=== PATIENT | female | born 1950 | race African-American/Black ===

== ENCOUNTER 2017-06-29 20:04 | Emergency (ER) | payer OTHER ==
[~2017-06-29] VITALS: Ht 160 cm; Wt 68.0 kg
[~2017-06-29 20:04] MED LIST: DOXY100C42 PO; FOS500 PO; LISI30TA36 PO; P20 PO
[2017-06-29] MEDS ORDERED: OXYCODONE HCL/ACETAMINOPHEN 5/325MG TABLET PO ONE (20:30)
[2017-06-29 21:22] VITALS: BP 152/74
== END 2017-06-30 00:11 | disposition home or self-care (01) ==
LOC: ER 20:50
DX: T82.838A Hemorrhage due to vascular prosthetic devices, implants and grafts, initial encounter (principal); I10 Essential (primary) hypertension; J44.9 Chronic obstructive pulmonary disease, unspecified; Z99.2 Dependence on renal dialysis; Y84.1 Kidney dialysis as the cause of abnormal reaction of the patient, or of later complication, without mention of misadventure at the time of the procedure
CPT/HCPCS: 99283

== ENCOUNTER 2018-02-27 04:29 | Emergency (ER) | payer OTHER, MEDICAID ==
[~2018-02-27] VITALS: Ht 167.6 cm; Wt 50.0 kg
[2018-02-27] MEDS ORDERED: ENALAPRIL 2.5MG/2ML VIAL 2ML IV ONE (04:45)
[2018-02-27] MEDS ORDERED: TRAMADOL 50MG TABLET PO ONE (05:00)
[2018-02-27 05:20] LABS: HEMATOCRIT. 33.4 % (36.0-48.0); HEMOGLOBIN. 10.8 g/dL (12.0-16.0); MEAN CORPUSCULAR HEMOGLOBIN 30.1 pg (28.0-32.0); MEAN PLATELET VOLUME 8.8 fl (7.4-10.4); PLATELET 102 x1000/uL (130-400); RED BLOOD CELL COUNT 3.59 mill/uL (4.2-5.4); RED CELL DISTRIBUTION WIDTH 19.1 % (11.6-14.6)
[2018-02-27 05:29] LABS: PHOSPHORUS 3.3 mg/dL (2.5-4.9)
[2018-02-27 06:02] LABS: INR 1.2; PROTHROMBIN TIME 12.5 sec (9.1-11.1)
[2018-02-27 06:40] LABS: PARTIAL THROMBOPLASTIN TIME > 200.0 sec (23.4-31.0)
[2018-02-27 07:00] VITALS: BP 133/54
[2018-02-27 07:48] LABS: PLATELET ESTIMATE SLIGHTLY DECREASED
== END 2018-02-27 07:14 | disposition short-term general hospital (02) ==
LOC: ER 04:29
DX: I73.9 Peripheral vascular disease, unspecified (principal); I12.0 Hypertensive chronic kidney disease with stage 5 chronic kidney disease or end stage renal disease; N18.6 End stage renal disease; D63.1 Anemia in chronic kidney disease; D72.829 Elevated white blood cell count, unspecified; R94.31 Abnormal electrocardiogram [ECG] [EKG]; J44.9 Chronic obstructive pulmonary disease, unspecified; E78.00 Pure hypercholesterolemia, unspecified; Z99.2 Dependence on renal dialysis
CPT/HCPCS: 36415; 80048; 83735; 84100; 85025; 85610; 85730; 93005; 96374; 99291; J3490

== ENCOUNTER 2018-04-13 04:10 | Inpatient (IN) | payer OTHER ==
[~2018-04-13] VITALS: Ht 160 cm; Wt 55.8 kg
[2018-04-13] MEDS ORDERED: MORPHINE SULFATE 4 MG/ML CPJ (NOT FOR IM USE) IV SCH (05:28)
[2018-04-13 07:51] LABS: HEMATOCRIT. 31.4 % (36.0-48.0); HEMOGLOBIN. 9.9 g/dL (12.0-16.0); MEAN CORPUSCULAR HEMOGLOBIN 31.9 pg (28.0-32.0); MEAN CORPUSCULAR VOLUME 100.9 fL (81.0-99.0); MEAN PLATELET VOLUME 9.7 fl (7.4-10.4); PLATELET 73 x1000/uL (130-400); RED BLOOD CELL COUNT 3.11 mill/uL (4.2-5.4)
[2018-04-13 08:16] LABS: CHLORIDE 103 mEq/L (98-107)
[2018-04-13 09:07] LABS: PLATELET ESTIMATE DECREASED
[2018-04-13] MEDS ORDERED: LEVOFLOXACIN 500MG PREMIX 100 ML IV SCH ×2 (10:30→14:30)
[2018-04-13 12:34] VITALS: BP 90/49
[2018-04-13] MEDS ORDERED: ONDANSETRON HCL 4MG/2ML INJ IV PRN (13:06)
[2018-04-13] MEDS ORDERED: DIPHENHYDRAMINE 50MG/ML VIAL IV PRN (13:06)
[2018-04-13] MEDS ORDERED: DOCUSATE SODIUM 100MG CAPSULE PO PRN (13:07)
[2018-04-13] MEDS: AMLODIPINE 10MG TABLET PO SCH (14:00)
[2018-04-13] MEDS: HYDROCODONE/ACETAMINOPHEN 5/325MG TABLET PO PRN (14:40)
[2018-04-13] MEDS ORDERED: MORPHINE SULFATE 4 MG/ML CPJ (NOT FOR IM USE) IV ONE (15:10)
[2018-04-13] MEDS: HYDROMORPHONE HCL/PF 2MG/ML CPJ IV PRN ×2 (15:43→18:43)
[2018-04-13 17:05] VITALS: BP 97/52
[2018-04-13 17:32] LABS: BG BASE EXCESS 0.2 mmol/L (-2.0-2.0); BG BILEVEL POS AIRWAY PRESSURE 18/5; BG CARBOXYHEMOGLOBIN 0.7 % (0.5-1.5); BG DEOXYHEMOGLOBIN 7.1 % (0.0-5.0); BG FRACTION INSPIRED OXYGEN 60; BG HCO3 ACT 24.2 mmol/L (22.0-26.0); BG METHEMOGLOBIN 0.1 % (0.0-1.5); BG OXYGEN SATURATION 92.8 % (92.0-98.5); BG OXYHEMOGLOBIN 92.1 % (94.0-97.0); BG PCO2 36.5 mmHg (35.0-45.0); BG PH 7.439 (7.350-7.450); BG PO2 64.5 mmHg (75.0-100.0); BG SAMPLE SITE RIGHT BRACHIAL; BG TOTAL HEMOGLOBIN 10.2 g/dL (12.0-18.0); BG VENT MODE MASK - BIPAP
[2018-04-13] MEDS ORDERED: HYDROMORPHONE HCL/PF 2MG/ML CPJ IV PRN (19:15)
[2018-04-13 20:00] VITALS: BP 80/44
[2018-04-13] MEDS ORDERED: MIDODRINE HCL 5MG TABLET PO SCH (20:45)
[2018-04-14] VITALS (7 sets, daily range): BP systolic 88–154; BP diastolic 33–93
[2018-04-14] MEDS: ACETAMINOPHEN 325MG TABLET PO PRN ×2 (01:53→08:00)
[2018-04-14] MEDS ORDERED: MIDODRINE HCL 5MG TABLET PO SCH (05:00)
[2018-04-14] MEDS ORDERED: SODIUM CHLORIDE 0.9% 500 ML IV SCH (07:00)
[2018-04-14] MEDS ORDERED: SODIUM CHLORIDE 0.9% 500 ML IV ONE (07:00)
[2018-04-14 07:47] LABS: BASOPHILS % 0.4 % (0.0-2.0); EOSINOPHILS % 4.8 % (0.0-5.0); HEMATOCRIT. 31.5 % (36.0-48.0); MEAN CORPUSCULAR VOLUME 101.1 fL (81.0-99.0); MEAN PLATELET VOLUME 10.9 fl (7.4-10.4); MONOCYTES % 8.6 % (2.0-8.0); NEUTROPHILS % 72.2 % (40.0-76.0); PLATELET 85 x1000/uL (130-400); RED BLOOD CELL COUNT 3.11 mill/uL (4.2-5.4); RED CELL DISTRIBUTION WIDTH 22.8 % (11.6-14.6)
[2018-04-14 08:03] LABS: CHLORIDE 101 mEq/L (98-107)
[2018-04-14] MEDS ORDERED: ENOXAPARIN 40MG/0.4ML SYR SUBCUT SCH (09:00)
[2018-04-14] MEDS: AMLODIPINE 10MG TABLET PO SCH (09:00)
[2018-04-14 11:01] LABS: BG BASE EXCESS 0.4 mmol/L (-2.0-2.0); BG BILEVEL POS AIRWAY PRESSURE 18/5; BG CARBOXYHEMOGLOBIN 0.7 % (0.5-1.5); BG DEOXYHEMOGLOBIN 5.6 % (0.0-5.0); BG FRACTION INSPIRED OXYGEN 60; BG HCO3 ACT 24.4 mmol/L (22.0-26.0); BG METHEMOGLOBIN 0.3 % (0.0-1.5); BG OXYGEN SATURATION 94.3 % (92.0-98.5); BG OXYHEMOGLOBIN 93.4 % (94.0-97.0); BG PCO2 36.7 mmHg (35.0-45.0); BG PO2 70.7 mmHg (75.0-100.0); BG SAMPLE SITE RIGHT BRACHIAL; BG TOTAL HEMOGLOBIN 10.6 g/dL (12.0-18.0); BG VENT MODE MASK - BIPAP; BG VENT RATE 16 set
[2018-04-14] MEDS: MIDODRINE HCL 5MG TABLET PO SCH ×2 (12:59→17:05)
[2018-04-14] MEDS: TRAMADOL 50MG TABLET PO PRN ×2 (13:30→19:16)
[2018-04-14] MEDS ORDERED: IPRATROPIUM/ALBUTEROL 0.5-3(2.5)MG/3ML NEB HHN PRN (17:00)
[2018-04-14] MEDS ORDERED: ALBUMIN HUMAN 25GM/100ML (25%) IV NR (18:00)
[2018-04-14] MEDS: BUDESONIDE 0.5MG/2ML NEB HHN SCH (20:00)
[2018-04-14] MEDS: IPRATROPIUM/ALBUTEROL 0.5-3(2.5)MG/3ML NEB HHN SCH (20:00)
[2018-04-14] MEDS: GUAIFENESIN 600MG ER TABLET PO SCH (21:00)
[2018-04-14] MEDS ORDERED: CINA60 MT (21:01)
[2018-04-14] MEDS ORDERED: ASPI-1158 MT (21:01)
[2018-04-14] MEDS ORDERED: ALBU18HF2 IH (21:01)
[2018-04-14] MEDS ORDERED: HYDR-4009 MT (21:01)
[2018-04-14] MEDS ORDERED: HYDR2TAB4 MT (21:01)
[2018-04-14] MEDS ORDERED: FLUT1DIS6 INH (21:01)
[2018-04-14] MEDS ORDERED: DOCU-286 MT (21:02)
[2018-04-14] MEDS ORDERED: SEVE0.8P MT (21:02)
[2018-04-15] VITALS (8 sets, daily range): BP systolic 100–133; BP diastolic 42–72
[2018-04-15] MEDS: IPRATROPIUM/ALBUTEROL 0.5-3(2.5)MG/3ML NEB HHN SCH ×6 (00:13→20:57)
[2018-04-15] MEDS: HYDROCODONE/ACETAMINOPHEN 5/325MG TABLET PO PRN ×3 (04:13→19:53)
[2018-04-15] MEDS: BUDESONIDE 0.5MG/2ML NEB HHN SCH ×2 (08:48→20:57)
[2018-04-15] MEDS: GUAIFENESIN 600MG ER TABLET PO SCH (09:53)
[2018-04-15] MEDS: MIDODRINE HCL 5MG TABLET PO SCH ×3 (09:53→18:17)
[2018-04-15] MEDS: AMLODIPINE 10MG TABLET PO SCH (09:53)
[2018-04-15] MEDS ORDERED: LEVOFLOXACIN 250MG PREMIX 50 ML IV SCH (11:00)
[2018-04-15] MEDS ORDERED: LEVOFLOXACIN 500MG PREMIX 100 ML IV SCH (13:05)
[2018-04-15 15:52] LABS: BG BASE EXCESS 0.4 mmol/L (-2.0-2.0); BG BILEVEL POS AIRWAY PRESSURE 15/5; BG CARBOXYHEMOGLOBIN 0.6 % (0.5-1.5); BG DEOXYHEMOGLOBIN 11.1 % (0.0-5.0); BG HCO3 ACT 24.3 mmol/L (22.0-26.0); BG METHEMOGLOBIN 0.2 % (0.0-1.5); BG OXYGEN SATURATION 88.8 % (92.0-98.5); BG OXYHEMOGLOBIN 88.1 % (94.0-97.0); BG PCO2 36.5 mmHg (35.0-45.0); BG PH 7.442 (7.350-7.450); BG PO2 54.6 mmHg (75.0-100.0); BG SAMPLE SITE RIGHT BRACHIAL; BG TOTAL HEMOGLOBIN 9.8 g/dL (12.0-18.0); BG VENT MODE MASK - BIPAP; BG VENT RATE 16 set
[2018-04-16] MEDS ORDERED: LEVOFLOXACIN 500MG PREMIX 100 ML IV SCH (11:00)
== END 2018-04-15 22:05 | disposition short-term general hospital (02) | DRG 871 ==
LOC: ER 04:10 → 7WST 07:08 → ENRESERV 07:23 → SUPCPDRO 07:24 → 7WST 09:30
PROVIDERS: ADMIT Hospitalist; ATTEND Hospitalist
PROC: 5A09457 Assistance with Respiratory Ventilation, 24-96 Consecutive Hours, Continuous Positive Airway Pressure (ICD-10-PCS; 2018-04-13)
PROC: 5A1D70Z Performance of Urinary Filtration, Intermittent, Less than 6 Hours Per Day (ICD-10-PCS; principal; 2018-04-14)
DX: A41.9 Sepsis, unspecified organism (principal); I50.33 Acute on chronic diastolic (congestive) heart failure; J96.01 Acute respiratory failure with hypoxia; N18.6 End stage renal disease; C34.90 Malignant neoplasm of unspecified part of unspecified bronchus or lung; C78.00 Secondary malignant neoplasm of unspecified lung; I13.2 Hypertensive heart and chronic kidney disease with heart failure and with stage 5 chronic kidney disease, or end stage renal disease; T87.81 Dehiscence of amputation stump; L89.150 Pressure ulcer of sacral region, unstageable; Z66 Do not resuscitate; Y83.8 Other surgical procedures as the cause of abnormal reaction of the patient, or of later complication, without mention of misadventure at the time of the procedure; E11.22 Type 2 diabetes mellitus with diabetic chronic kidney disease; E11.51 Type 2 diabetes mellitus with diabetic peripheral angiopathy without gangrene; E78.00 Pure hypercholesterolemia, unspecified; E78.5 Hyperlipidemia, unspecified; J44.9 Chronic obstructive pulmonary disease, unspecified; Z87.891 Personal history of nicotine dependence; Z89.611 Acquired absence of right leg above knee; Z99.2 Dependence on renal dialysis; Z79.899 Other long term (current) drug therapy; Z79.84 Long term (current) use of oral hypoglycemic drugs; Y92.89 Other specified places as the place of occurrence of the external cause; Z99.81 Dependence on supplemental oxygen
CPT/HCPCS: 36415; 36600; 71045; 80048; 82375; 82805; 82962; 84134; 84484; 93005; 93970; 94640; 94660; 99285; J1170; J1956; J2270; J7050; J7620; J7626; P9047